=== PATIENT | female | born 1960 | race Caucasian/White ===

== ENCOUNTER 2017-11-19 19:24 | Emergency (ER) | payer MEDICAID ==
[~2017-11-19] VITALS: Ht 167.6 cm; Wt 85.0 kg
[2017-11-19] MEDS ORDERED: IOHEXOL 350 MG/ML 10 ML VIAL (for RAD DIAG) IVCONTRAST ONE (19:25)
[2017-11-19 19:38] VITALS: BP 133/71; PULSE 85; RESP 18; TEMP 98.4; O2SAT 99
[2017-11-19] MEDS ORDERED: ONDANSETRON HCL 4 MG/2 ML VIAL IVP ONE (19:45)
[2017-11-19] MEDS ORDERED: SODIUM CHLORIDE 0.9% FLUSH 10 ML FLUSH IV FLUSH PRN (19:45)
--- NOTE | 2017-11-19 19:53 | PD ---
HPI Chief Complaint: Abdominal Pain Time Seen by Provider: 19:35 Travel History International Travel<30 days: No Contact w/Intl Traveler<30days: No Traveled to known affect area: No History of Present Illness HPI 57-year-old female presents with diffuse abdominal pain that has been going on for the past couple of months. She states it has gotten worse and she has not had any urinary output out of her catheter since yesterday. She states she is on IV minocycline for a bad urinary tract infection as well as an oral antibiotic Macrobid that she got it [place]. She states she followed with Dr. Gardiner in the office and he scheduled her for surgery on Wednesday to replace her catheter in the OR. She states last time she had it changed in [facility]. She states she had to have it last changed in the OR a couple months ago and that she has had it for years. She states that she is nauseous and having urine leak from her urethra. She took oral Zofran prior to arrival. She arrives by ambulance. She denies any other specific complaints. [facility] Past Medical History Narrative Medical Hypertension, asthma, MS, fibromyalgia Past Surgical History Narrative Surgical Tonsillectomy, hysterectomy, cyst removal from ovary, vascular surgery to leg in 1983, prior knee surgery Social History Tobacco Use: Yes (E-cigarette use) Allergies-Medications (Allergen,Severity, Reaction): Coded Allergies: acetaminophen (Verified Allergy, Unknown, RASH, ITCHING, 11/19/17) cortisone (Verified Allergy, Unknown, RASH,ITCHING, VOMITING, 11/19/17) gabapentin (Verified Allergy, Unknown, MUSCLE SPASMS, 11/19/17) interferon beta-1a (Verified Allergy, Unknown, 11/19/17) latex (Verified Allergy, Unknown, RASH, ITCHING, 11/19/17) levofloxacin (Verified Allergy, Unknown, ITCHING, RASH, 11/19/17) metronidazole (Verified Allergy, Unknown, RASH, ITCHING, 11/19/17) morphine (Verified Allergy, Unknown, RASH, ITCHING, 11/19/17) Uncoded Allergies: SULFA MEDS (Allergy, Severe, FACE SWELLING, HIVES, 11/19/17) SPIRIVA (Allergy, Unknown, BLURRED VISION WITH EYE PAIN, 11/19/17) Reported Meds & Prescriptions Reported Meds & Active Scripts Active Keflex (Cephalexin) 500 Mg Cap 500 Mg PO Q12H 7 Days Reported Minocycline (Minocycline HCl) 100 Mg Cap 100 Mg IV BID Flovent Hfa 12 GM Inh (Fluticasone Propionate) 220 Mcg/Act Inh 1 Puff INH BID Use daily at the same time. Phenazopyridine (Phenazopyridine HCl) 200 Mg Tab 200 Mg PO TID PRN Fluconazole 100 Mg Tab 100 Mg PO DAILY Ditropan (Oxybutynin Chloride) 5 Mg Tab 5 Mg PO TID Diazepam 5 Mg Tab 5 Mg PO HS PRN Albuterol Neb (Albuterol Sulfate) 0.63 Mg/3 Ml Neb Unknown Dose NEB BID PRN Proair Hfa 8.5 GM Inh (Albuterol Sulfate) 90 Mcg/Act Aer 2 Puff INH Q4-6H PRN 108 mcg/actuation Zofran (Ondansetron HCl) 4 Mg Tab 4 Mg PO Q6HR PRN Polyethylene Glycol 3350 Powder (Polyethylene Glycol) 17 Gram Pow 17 Gm PO DAILY Protonix (Pantoprazole Sodium) 40 Mg Tab 40 Mg PO DAILY Aspirin Low Dose (Aspirin) 81 Mg Chew 81 Mg CHEW DAILY Once Daily (Multivitamin) 1 Each Tablet 1 Tab PO DAILY Probiotic (Lactobacillus Acidophilus) 10 Billion Cell Cap 1 Cap PO DAILY Topamax (Topiramate) 100 Mg Tab 100 Mg PO BID Oxycodone (Oxycodone HCl) 30 Mg Tab 30 Mg PO Q6HR Tizanidine (Tizanidine HCl) 4 Mg Cap 4 Mg PO TID Lyrica (Pregabalin) 150 Mg Cap 150 Mg PO TID Macrobid (Nitrofurantoin Monoh/Nitrofur Macro) 100 Mg Cap 100 Mg PO BID Review of Systems Except as stated in HPI: all other systems reviewed are Neg Physical Exam Narrative GENERAL: 57-year-old female in no apparent distress SKIN: Focused skin assessment warm/dry. HEAD: Atraumatic. Normocephalic. EYES: Pupils equal and round. No scleral icterus. No injection or drainage. ENT: No nasal bleeding or discharge. Mucous membranes pink and moist. NECK: Trachea midline. No JVD. CARDIOVASCULAR: Regular rate and rhythm. RESPIRATORY: No accessory muscle use. No increased effort GASTROINTESTINAL: Abdomen diffusely tender no rebound. [place] catheter bag noted with urine and feces NEUROLOGICAL: Awake and alert. Moves extremities. Normal speech. PSYCHIATRIC: Appropriate mood and affect; insight and judgment normal. Data Data Last Documented VS Vital Signs Date Time Temp Pulse Resp B/P (MAP) Pulse Ox O2 Delivery O2 Flow Rate FiO2 11/19/17 22:40 82 16 119/66 (83) 98 Room Air 11/19/17 19:38 98.4 Orders Orders Complete Blood Count With Diff (11/19/17 19:42) Comprehensive Metabolic Panel (11/19/17 19:42) Lipase (11/19/17 19:42) Prothrombin Time / Inr (Pt) (11/19/17 19:42) Act Partial Throm Time (Ptt) (11/19/17 19:42) Urinalysis - C+S If Indicated (11/19/17 19:42) Ct Abd/Pel W Iv Contrast(Rout) (11/19/17 19:42) Iv Access Insert/Monitor (11/19/17 19:42) Ecg Monitoring (11/19/17 19:42) Oximetry (11/19/17 19:42) Ondansetron Inj (Zofran Inj) (11/19/17 19:45) Sodium Chloride 0.9% Flush (Ns Flush) (11/19/17 19:45) Urine Culture (11/19/17 20:05) Ketorolac Inj (Toradol Inj) (11/19/17 21:30) Ceftriaxone Inj (Rocephin Inj) (11/19/17 21:45) Iohexol 350 Inj (Omnipaque 350 Inj) (11/19/17 19:25) Ed Discharge Order (11/19/17 22:31) Labs Laboratory Tests Test 11/19/17 20:00 11/19/17 20:05 White Blood Count 7.8 TH/MM3 Red Blood Count 4.07 MIL/MM3 Hemoglobin 13.1 GM/DL Hematocrit 38.6 % Mean Corpuscular Volume 94.8 FL Mean Corpuscular Hemoglobin 32.2 PG Mean Corpuscular Hemoglobin Concent 34.0 % Red Cell Distribution Width 14.7 % Platelet Count 268 TH/MM3 Mean Platelet Volume 8.6 FL Neutrophils (%) (Auto) 48.6 % Lymphocytes (%) (Auto) 35.1 % Monocytes (%) (Auto) 7.9 % Eosinophils (%) (Auto) 7.8 % Basophils (%) (Auto) 0.6 % Neutrophils # (Auto) 3.8 TH/MM3 Lymphocytes # (Auto) 2.7 TH/MM3 Monocytes # (Auto) 0.6 TH/MM3 Eosinophils # (Auto) 0.6 TH/MM3 Basophils # (Auto) 0.0 TH/MM3 CBC Comment DIFF FINAL Differential Comment Prothrombin Time 10.5 SEC Prothromb Time International Ratio 1.0 RATIO Activated Partial Thromboplast Time 27.2 SEC Blood Urea Nitrogen 21 MG/DL Creatinine 0.98 MG/DL Random Glucose 82 MG/DL Total Protein 6.6 GM/DL Albumin 3.1 GM/DL Calcium Level 9.0 MG/DL Alkaline Phosphatase 99 U/L Aspartate Amino Transf (AST/SGOT) 10 U/L Alanine Aminotransferase (ALT/SGPT) 8 U/L Total Bilirubin 0.4 MG/DL Sodium Level 143 MEQ/L Potassium Level 3.2 MEQ/L Chloride Level 112 MEQ/L Carbon Dioxide Level 22.9 MEQ/L Anion Gap 8 MEQ/L Estimat Glomerular Filtration Rate 58 ML/MIN Lipase 140 U/L Urine Color DARK-YELLOW Urine Turbidity CLOUDY Urine pH 8.0 Urine Specific [place] 1.014 Urine Protein 300 mg/dL Urine Glucose (UA) NEG mg/dL Urine Ketones NEG mg/dL Urine Occult Blood SMALL Urine Nitrite NEG Urine Bilirubin NEG Urine Urobilinogen LESS THAN 2.0 MG/DL Urine Leukocyte Esterase LARGE Urine RBC 4 /hpf Urine Squamous Epithelial Cells 1 /hpf Urine Triple Phosphate Crystals MOD /hpf Urine Amorphous Sediment FEW Urine Bacteria MANY /hpf Urine Mucus FEW /lpf Microscopic Urinalysis Comment CULTURE INDICATED MDM Medical Decision Making Medical Screen Exam Complete: Yes Emergency Medical Condition: Yes Medical Record Reviewed: Yes (Past history confirmed) Interpretation(s) CBC & BMP Diagram 11/19/17 20:00 Total Protein 6.6, Albumin 3.1 L, Calcium Level 9.0, Alkaline Phosphatase 99, Aspartate Amino Transf (AST/SGOT) 10 L, Alanine Aminotransferase (ALT/SGPT) 8 L , Total Bilirubin 0.4 ua with infection Last 24 hours Impressions Abdomen/Pelvis CT 11/19/171941 Signed Impressions: Service Date/Time: Sunday, November 19, 2017 21:57 - CONCLUSION: 1. No acute findings. Suprapubic catheter present. Nonobstructing renal calcifications. No obstruction, free fluid or free air. Ken Miranda MD Differential Diagnosis UTI, fistula, acute renal failure, obstruction Narrative Course We will check blood work, urinalysis, CT scan abdominal pelvis and reevaluate On CT patient has no distention of bladder, blood work shows no signs of renal failure. Patient still has infection in urine. Will give Rocephin and discuss with her urologist Patient updated and will be given Keflex to add to her antibiotics. Advised to follow for surgery on Wednesday. Patient denies any new complaints, all questions answered. Patient knows that follow up is incumbent on them and to return to the emergency room immediately if new or worsening symptoms develop. Patient given strict return precautions, vitals reviewed and are normal, agrees to further workup as an outpatient. staff helping arrange medical transport Physician Communication Physician Communication dr gardiner states to send home and can add keflex Diagnosis Primary Impression: Abdominal pain Qualified Codes: R10.9 - Unspecified abdominal pain Additional Impression: UTI (urinary tract infection) Qualified Codes: T83.511A - Infection and inflammatory reaction due to indwelling urethral catheter, initial encounter; N39.0 - Urinary tract infection , site not specified Patient Instructions: General Instructions Additional Instructions: come for your surgery Wednesday as scheduled, tylenol as needed Med/Other Pt SpecificInfo: Prescription(s) given Scripts Cephalexin (Keflex) 500 Mg Cap 500 MG PO Q12H for Infection for 7 Days, #14 CAP 0 Refills Prov: Sowmya Rousseau MD 11/19/17 Disposition: 01 DISCHARGE HOME Condition: Stable Sowmya Rousseau MD Nov 19, 2017 19:53
[2017-11-19 19:59] VITALS: O2SAT 100
[2017-11-19 20:16] LABS: AUTOMATED NEUTROPHIL # 3.8 TH/MM3 (1.8-7.7); BASOPHIL % 0.6 % (0.0-2.0); EOSINOPHIL # 0.6 TH/MM3 (0-0.4); EOSINOPHIL % 7.8 % (0.0-4.0); HEMATOCRIT 38.6 % (35.0-46.0); HEMOGLOBIN 13.1 GM/DL (11.6-15.3); LYMPH % 35.1 % (9.0-44.0); LYMPHOCYTE # 2.7 TH/MM3 (1.0-4.8); MEAN CELL VOLUME 94.8 FL (80.0-100.0); MEAN CORPUSCULAR HEMOGLOBIN 32.2 PG (27.0-34.0); MEAN PLATELET VOLUME 8.6 FL (7.0-11.0); MONO % 7.9 % (0.0-8.0); MONOCYTE # 0.6 TH/MM3 (0-0.9); NEUT % 48.6 % (16.0-70.0); PLATELET COUNT 268 TH/MM3 (150-450); RED BLOOD COUNT 4.07 MIL/MM3 (4.00-5.30); RED CELL DISTRIBUTION WIDTH 14.7 % (11.6-17.2); WHITE BLOOD COUNT 7.8 TH/MM3 (4.0-11.0)
[2017-11-19] MEDS ORDERED: LACTCAP8 PO (20:23)
[2017-11-19] MEDS ORDERED: TIZA4CAP3 PO (20:23)
[2017-11-19] MEDS ORDERED: POLY17S PO (20:23)
[2017-11-19] MEDS ORDERED: MACR100C2 PO (20:23)
[2017-11-19] MEDS ORDERED: TOPI100 PO (20:23)
[2017-11-19] MEDS ORDERED: DIAZ5TAB PO (20:23)
[2017-11-19] MEDS ORDERED: ZOFR4TAB PO (20:23)
[2017-11-19] MEDS ORDERED: FLUC100T2 PO (20:23)
[2017-11-19] MEDS ORDERED: OXYB5TAB8 PO (20:23)
[2017-11-19] MEDS ORDERED: FLUTI220I INH (20:23)
[2017-11-19] MEDS ORDERED: PROT40TA PO (20:23)
[2017-11-19] MEDS ORDERED: MINO100 IV (20:23)
[2017-11-19] MEDS ORDERED: OXYC30TA PO (20:23)
[2017-11-19] MEDS ORDERED: ONCETAB7 PO (20:23)
[2017-11-19] MEDS ORDERED: PHEN-537 PO (20:23)
[2017-11-19] MEDS ORDERED: ALBUAER3 INH (20:23)
[2017-11-19] MEDS ORDERED: LYRI150C PO (20:23)
[2017-11-19] MEDS ORDERED: ALBU0.63 NEB (20:23)
[2017-11-19] MEDS ORDERED: ASPI81CH6 CHEW (20:23)
[2017-11-19 20:25] LABS: PROTHROMBIN TIME - PATIENT 10.5 SEC (9.8-11.6)
[2017-11-19 20:30] LABS: AMORPHOUS SEDIMENT, URINE FEW; BACTERIA, URINE MANY /hpf; BILIRUBIN, URINE NEG (NEG); BLOOD, URINE SMALL (NEG); GLUCOSE,URINE NEG (NEG); KETONE, URINE NEG (NEG); MUCUS URINE FEW /lpf (OCC); NITRITE,URINE NEG (NEG); SQUAMOUS EPITHELIAL CELL URINE 1 /hpf (0-5); TRIPLE PHOSPHATE CRYSTAL,URINE MOD /hpf; URINE LEUKOCYTE ESTERASE LARGE (NEG)
[2017-11-19 20:31] LABS: URINE COLOR DARK-YELLOW (YELLW/STRAW)
[2017-11-19 20:33] LABS: ALBUMIN 3.1 GM/DL (3.4-5.0); AST (GOT) 10 U/L (15-37); BICARBONATE 22.9 MEQ/L (21.0-32.0); BLOOD UREA NITROGEN 21 MG/DL (7-18); CHLORIDE 112 MEQ/L (98-107); CREATININE 0.98 MG/DL (0.50-1.00); GLOMERULAR FILTRATION RATE 58 ML/MIN (>89); GLUCOSE,RANDOM 82 MG/DL (74-106); SODIUM (NA) 143 MEQ/L (136-145)
[2017-11-19 20:35] LABS: ALKALINE PHOSPHATASE 99 U/L (45-117); ALT (GPT) 8 U/L (10-53); TOTAL BILIRUBIN ADULT 0.4 MG/DL (0.2-1.0); TOTAL PROTEIN 6.6 GM/DL (6.4-8.2)
[2017-11-19] MEDS ORDERED: KETOROLAC TROMETHAMINE 30 MG/ML (IVP) VIAL IV PUSH ONE (21:30)
[2017-11-19] MEDS ORDERED: cefTRIAXone INJ 1,000 MG in SODIUM CHLORIDE 0.9% INJ 100 ML IV ONE (21:45)
--- NOTE | 2017-11-19 22:19 | RADRPT ---
EXAM DATE/TIME: 11/19/2017 21:57 [place] COMPARISON: No previous studies available for comparison. INDICATIONS : Abdominal pain with nausea and vomiting. IV CONTRAST: 97 cc Omnipaque 350 (iohexol) IV ORAL CONTRAST: No oral contrast ingested. RADIATION DOSE: 13.28 CTDIvol (mGy) MEDICAL HISTORY : Hypertension. Renal calculi. reflux SURGICAL HISTORY : Hysterectomy. suprapubis catheter ENCOUNTER: Initial ACUITY: 1 day PAIN SCALE: 5/10 LOCATION: lower quadrant abdomen TECHNIQUE: Volumetric scanning of the abdomen and pelvis was performed. Using automated exposure control and ad justment of the mA and/or kV according to patient size, radiation dose was kept as low as reasonably achievable to obtain optimal diagnostic quality images. DICOM format image data is available electro nically for review and comparison. FINDINGS: Lung bases are clear. No acute findings in the liver, spleen, pancreas. Mild bilateral adrenal hyperp lasia. Small bilateral renal cysts. Nonobstructing 3 mm calcification in the lower pole of both kidne ys. 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 No free air or free fluid. No bowel obstruction. Suprapubic catheter present. Moderate severe osteoar thritis of the hips. CONCLUSION: 1. No acute findings. Suprapubic catheter present. Nonobstructing renal calcifications. No obstructio n, free fluid or free air. Ken Miranda MD on November 19, 2017 at 22:14 Board Certified Radiologist. This report was verified electronically.
[2017-11-19] MEDS ORDERED: CEPH-460 PO (22:32)
[2017-11-19 22:40] VITALS: BP 119/66; PULSE 82; RESP 16; O2SAT 98
[2017-11-23] MEDS ORDERED: TRAM50 PO (15:11)
== END 2017-11-20 00:31 | disposition home or self-care (01) ==
LOC: NEPC 19:24
DX: R10.9 Unspecified abdominal pain (principal); T83.511A Infection and inflammatory reaction due to indwelling urethral catheter, initial encounter; N39.0 Urinary tract infection, site not specified; R11.0 Nausea; B96.5 Pseudomonas (aeruginosa) (mallei) (pseudomallei) as the cause of diseases classified elsewhere; B96.89 Other specified bacterial agents as the cause of diseases classified elsewhere; I10 Essential (primary) hypertension; J45.909 Unspecified asthma, uncomplicated; G35 Multiple sclerosis; M79.7 Fibromyalgia; Z72.0 Tobacco use
CPT/HCPCS: 74177; 80053; 81001; 83690; 85025; 85610; 85730; 87077; 87086; 87186; 96374; 96375; 99284; J0696; J1885; J2405; Q9967

== ENCOUNTER → 2017-11-23 | Day surgery (SDC) | payer MEDICAID ==
[~2017-11-23] VITALS: Ht 167.6 cm; Wt 86.0 kg
[~2017-11-23] MED LIST: *ONDANSETRON 4 MG VIAL PERIprocedural Use ONLY ONE; *RESP: ALBUTEROL 2.5 MG/3 ML NEB (PRN) PERIprocedural Use ONLY NEB ONE; ALBU0.63 NEB; ALBUAER3 INH; ASPI81CH6 CHEW; CEPH-460 PO; CHLORHEXIDINE GLUCONATE 2 % 1 PACK (2 CLOTHS) TOPICAL PRN; DIAZ5TAB PO; DO NOT ADM ANY ANTICOAGULANT DRUGS PRN; FLUC100T2 PO; FLUTI220I INH; HYDROmorphone HCL PF 2 MG/ML VIAL IV PUSH PRN; HYDROmorphone HCL PF 2 MG/ML VIAL ONE; LACTATED RINGER'S 1000 ML INJ 1,000 ML IV ONE; LACTATED RINGER'S 1000 ML IV PRN; LACTCAP8 PO; LIDOCAINE HCL 1% PF 5 ML SYRINGE OTHER ONE; LYRI150C PO; MACR100C2 PO; METOPROLOL TARTRATE 25 MG TAB PO PRN; MIDAZOLAM HCL 2 MG/2 ML VIAL ONE; MINO100 IV; ONCETAB7 PO; ONDANSETRON HCL 4 MG/2 ML VIAL IV ONE; ONDANSETRON HCL 4 MG/2 ML VIAL IV PUSH PRN; OXYB5TAB8 PO; OXYC30TA PO; PHEN-537 PO; PHENYLEPH/NS 1000 MCG/10 ML SYR IV ONE; PICC Daily Heparin 100 unit/mL Lock Flush IV FLUSH SCH; PICC PRN Heparin 100 units/ml Lock Flush IV FLUSH; POLY17S PO; POVIDONE IODINE 5% (ANTISEPSIS KIT) 4 APPLICATIONS EACH NARE PRN; PROPOFOL 200 MG/20 ML AMP IV ONE; PROT40TA PO; SODIUM CHLORID 0.9% 500 ML IV PRN; SODIUM CHLORIDE 0.9% FLUSH 10 ML FLUSH IV FLUSH PRN; SODIUM CHLORIDE 0.9% FLUSH 10 ML FLUSH IV FLUSH SCH; TIZA4CAP3 PO; TOPI100 PO; TRAM50 PO; ZOFR4TAB PO; ePHEDrine/NS 25 MG/5 ML SYRINGE IV ONE; traMADol HCL 50 MG TAB PO PRN
[2017-11-23 12:36] LABS: BASOPHIL # 0.1 TH/MM3 (0-0.2); BASOPHIL % 0.7 % (0.0-2.0); EOSINOPHIL # 0.4 TH/MM3 (0-0.4); EOSINOPHIL % 5.4 % (0.0-4.0); HEMOGLOBIN 14.2 GM/DL (11.6-15.3); LYMPH % 37.1 % (9.0-44.0); LYMPHOCYTE # 2.9 TH/MM3 (1.0-4.8); MEAN CELL VOLUME 94.7 FL (80.0-100.0); MEAN CORPUSCULAR HGB CONC 33.8 % (32.0-36.0); MEAN PLATELET VOLUME 9.6 FL (7.0-11.0); MONO % 6.1 % (0.0-8.0); MONOCYTE # 0.5 TH/MM3 (0-0.9); NEUT % 50.7 % (16.0-70.0); PLATELET COUNT 260 TH/MM3 (150-450); RED BLOOD COUNT 4.44 MIL/MM3 (4.00-5.30); RED CELL DISTRIBUTION WIDTH 15.1 % (11.6-17.2); WHITE BLOOD COUNT 7.9 TH/MM3 (4.0-11.0)
--- NOTE | 2017-11-23 15:05 | PD.OP ---
Operative Report Date of Surgery: Nov 23, 2017 Preoperative Diagnosis: (1) Neurogenic bladder Postoperative Diagnosis: (1) Neurogenic bladder Procedure: Cystoscopy and exchange of suprapubic catheter Anesthesia: General Surgeon: Dalton Gambino Cooker Soda(s): None Operation and Findings: Indication for procedures: Case of a pleasant 57-year-old female with neurogenic bladder dysfunction related to multiple sclerosis who presents now for cystoscopy and exchange of suprapubic catheter. Operative procedure in detail: Patient was brought to the operating room suite and placed supine on the OR table. She was then placed under general anesthesia. She was then repositioned in the dorsal lithotomy position and prepped and draped in normal sterile fashion. After an appropriate timeout was undertaken I proceeded with cystoscopic evaluation utilizing the rigid cystoscope with the 20 [place] sheath and 30 lens. Both right and left ureteral orifice equal to correct anatomic position draining clear yellow urine. There was some sediment floating around within the urinary bladder that appeared to be related to crustations on the balloon of the suprapubic catheter. There was no evidence of bladder stones or fistula formation. The bladder was then irrigated via the cystoscope and subsequent to this the suprapubic catheter was easily changed with a 16 [place] silicone [place] with 10 cc in the balloon. Position was verified with cystoscopic evaluation. The suprapubic catheter was then connected to gravity drainage and the cystoscope withdrawn. The patient tolerated the procedures without complications. She was transferred to the PACU in satisfactory condition. Dalton Gambino MD Nov 23, 2017 15:05
[2017-11-23 17:00] VITALS: BP 113/58; PULSE 97; RESP 18; TEMP 97.7; O2SAT 99
--- NOTE | 2017-11-24 15:54 | EKG ---
Date Performed: 11/23/2017 Time Performed: 13:27:29 PTAGE: 57 years EKG: Sinus rhythm NORMAL ECG NO PREVIOUS TRACING DOCTOR: Jerome Barrett Interpretating Date/Time 11/24/2017 15:52:57
== END | disposition home or self-care (01) ==
LOC: HSDC 10:39
PROVIDERS: ATTEND Urology
DX: N31.9 Neuromuscular dysfunction of bladder, unspecified (principal); G35 Multiple sclerosis; I10 Essential (primary) hypertension; J45.909 Unspecified asthma, uncomplicated; I73.9 Peripheral vascular disease, unspecified; K21.9 Gastro-esophageal reflux disease without esophagitis; I83.90 Asymptomatic varicose veins of unspecified lower extremity; H93.19 Tinnitus, unspecified ear; M85.80 Other specified disorders of bone density and structure, unspecified site; Z87.440 Personal history of urinary (tract) infections; Z01.818 Encounter for other preprocedural examination
CPT/HCPCS: 00800; 51705; 85025; 93005; 94664; J1170; J1642; J2250; J2370; J2405; J3010; J7120; J7613

== ENCOUNTER → 2017-12-20 | Day surgery (SDC) | payer MEDICAID ==
[~2017-12-20] VITALS: Ht 167.6 cm; Wt 82.0 kg
[~2017-12-20] MED LIST changes: +*MEPERIDINE 25 MG INJ VIAL PERIprocedural Use ONLY ONE; +*PROMETHAZINE 25 MG/ML VIAL PERIprocedural use ONLY ONE; -*RESP: ALBUTEROL 2.5 MG/3 ML NEB (PRN) PERIprocedural Use ONLY NEB ONE; +APREPITANT 40 MG CAP ONE; +APREPITANT 40 MG CAP PO ONE; -CEPH-460 PO; +CITR1SOL IRRIGATION; +CYAN100025 IM; +FAMOTIDINE 20 MG/2 ML VIAL IV ONE; +FAMOTIDINE 20 MG/2 ML VIAL ONE; -HYDROmorphone HCL PF 2 MG/ML VIAL IV PUSH PRN; -LACTATED RINGER'S 1000 ML INJ 1,000 ML IV ONE; -ONDANSETRON HCL 4 MG/2 ML VIAL IV ONE; +ONDANSETRON HCL 4 MG/2 ML VIAL IV PUSH ONE; -SODIUM CHLORIDE 0.9% FLUSH 10 ML FLUSH IV FLUSH SCH; -traMADol HCL 50 MG TAB PO PRN
--- NOTE | 2017-12-20 11:28 | PD.OP ---
Operative Report Date of Surgery: Dec 20, 2017 Preoperative Diagnosis: (1) Neurogenic bladder Postoperative Diagnosis: (1) Neurogenic bladder Procedure: Cystoscopy and replacement of suprapubic tube Anesthesia: General Surgeon: Dalton Gambino Cake Press Operator Helper(s): None Operation and Findings: Indication for procedures: Case of a pleasant 57-year-old female with neurogenic bladder dysfunction related to multiple sclerosis who is being managed with an indwelling suprapubic catheter. Patient recently presented to my office for exchange of suprapubic catheter and the catheter could not be successfully removed. Patient presents today for cystoscopy and replacement of suprapubic catheter. Operative procedure in detail: Patient was brought to the operating room suite and placed supine on the cystoscopy table. She was then placed under general anesthesia. She was then repositioned in the dorsolithotomy position and prepped and draped in normal sterile fashion. After appropriate timeout was undertaken I proceeded with cystoscopic evaluation utilizing the rigid cystoscope with the 20 [place] sheath and the 30 lens. The tip of the suprapubic catheter could be easily seen and had multiple calcifications adherent to it. Under direct vision I deflated the catheter balloon and attempted to remove the catheter however the calcifications at the tip of the catheter precluded retrieval. I then cut the catheter near the hub and grasped the end of the catheter with flexible forceps and brought it out through the urethra. A 16 [place] 10 cc catheter was then easily replaced and connected to gravity drainage. The patient tolerated the procedures without complications and was transferred to the PACU in satisfactory condition. Dalton Gambino MD Dec 20, 2017 11:28
[2017-12-20 13:34] VITALS: BP 105/79; PULSE 83; RESP 18; TEMP 97.5; O2SAT 100
== END | disposition home or self-care (01) ==
LOC: HSDC 06:11
PROVIDERS: ATTEND Urology
DX: N31.9 Neuromuscular dysfunction of bladder, unspecified (principal); G35 Multiple sclerosis
CPT/HCPCS: 00800; 51710; J1170; J2175; J2250; J2370; J2405; J2550; J3010; J7120; J8501

== ENCOUNTER → 2018-01-31 | Day surgery (SDC) | payer MEDICAID ==
[~2018-01-31] VITALS: Ht 167.6 cm; Wt 82.0 kg
[~2018-01-31] MED LIST changes: +*HYDROmorphone PF 0.5 MG/0.5 ML PERIprocedure ONLY ONE; -*PROMETHAZINE 25 MG/ML VIAL PERIprocedural use ONLY ONE; +*RESP: ALBUTEROL 2.5 MG/3 ML NEB (PRN) PERIprocedural Use ONLY NEB ONE; -APREPITANT 40 MG CAP ONE; -APREPITANT 40 MG CAP PO ONE; +CEPH500C PO; -DO NOT ADM ANY ANTICOAGULANT DRUGS PRN; -FAMOTIDINE 20 MG/2 ML VIAL IV ONE; -FAMOTIDINE 20 MG/2 ML VIAL ONE; -FLUC100T2 PO; -HYDROmorphone HCL PF 2 MG/ML VIAL ONE; -MACR100C2 PO; -MIDAZOLAM HCL 2 MG/2 ML VIAL ONE; -MINO100 IV; +NITR1CAP36 PO; -ONDANSETRON HCL 4 MG/2 ML VIAL IV PUSH ONE; +PICC PRN After Blood Draw NS Lock Flush IV FLUSH; +PROMETHAZINE INJ 25 MG/ML VIAL ONE; +SODIUM CHLORIDE 0.9% FLUSH 10 ML FLUSH IV FLUSH SCH; -TRAM50 PO; +[UNRECOGNIZED DRUG - CODE] IV; +oxyCODONE/ACETAMINOPHEN 7.5 MG/325 MG TAB PO PRN
[2018-01-31 12:30] LABS: AUTOMATED NEUTROPHIL # 4.6 TH/MM3 (1.8-7.7); BASOPHIL # 0.1 TH/MM3 (0-0.2); BASOPHIL % 0.8 % (0.0-2.0); EOSINOPHIL # 0.5 TH/MM3 (0-0.4); EOSINOPHIL % 5.2 % (0.0-4.0); HEMATOCRIT 43.5 % (35.0-46.0); HEMOGLOBIN 14.8 GM/DL (11.6-15.3); LYMPH % 38.4 % (9.0-44.0); LYMPHOCYTE # 3.6 TH/MM3 (1.0-4.8); MEAN CELL VOLUME 93.9 FL (80.0-100.0); MEAN CORPUSCULAR HEMOGLOBIN 31.9 PG (27.0-34.0); MEAN CORPUSCULAR HGB CONC 33.9 % (32.0-36.0); MEAN PLATELET VOLUME 9.6 FL (7.0-11.0); MONO % 6.8 % (0.0-8.0); MONOCYTE # 0.6 TH/MM3 (0-0.9); NEUT % 48.8 % (16.0-70.0); PLATELET COUNT 239 TH/MM3 (150-450); RED BLOOD COUNT 4.63 MIL/MM3 (4.00-5.30); RED CELL DISTRIBUTION WIDTH 14.2 % (11.6-17.2); WHITE BLOOD COUNT 9.4 TH/MM3 (4.0-11.0)
--- NOTE | 2018-01-31 15:20 | PD.OP ---
Operative Report Date of Surgery: Jan 31, 2018 Preoperative Diagnosis: (1) Neurogenic bladder Postoperative Diagnosis: (1) Neurogenic bladder Procedure: Cystoscopy and exchange of retained suprapubic tube Surgeon: Dalton Gambino Director Corporate Sales(s): None Operation and Findings: Indication for procedures: Case of a pleasant 57-year-old female with history neurogenic bladder dysfunction who presents today for cystoscopy and exchange of a retained suprapubic catheter. Operative procedure in detail: Patient was brought to the operating room suite and placed supine on the OR table. She was then placed under general anesthesia. She was then repositioned in the dorsolithotomy position and prepped and draped in normal sterile fashion. After appropriate timeout was undertaken I proceeded with cystoscopic evaluation utilizing the rigid cystoscope with the 30 lens and 20 [place] sheath. The previously inserted suprapubic catheter could be seen protruding from the anterior bladder wall. The exposed portion of the catheter including the balloon was markedly encrusted. I then deflated the balloon with a 10 cc syringe and attempted to withdraw it without success. I utilized the grasping forceps to break up some of the encrustations on the exposed portion of the tube. The tube was then cut from above and removed from below utilizing grasping forceps. I then proceeded with placing a new 18 [place] silicone suprapubic catheter from above without difficulty. The previous suprapubic tube was 16 [place] in caliber. The cystoscope was then withdrawn. The suprapubic catheter was then connected to gravity drainage and a sterile dressing applied at the site. The patient tolerated the procedures without complications and was transferred to the PACU in satisfactory condition. Dalton Gambino MD Jan 31, 2018 15:20
[2018-01-31 18:30] VITALS: BP 110/68; PULSE 88; RESP 16; O2SAT 98
== END | disposition home or self-care (01) ==
LOC: HSDC 09:38
PROVIDERS: ATTEND Urology
DX: N31.9 Neuromuscular dysfunction of bladder, unspecified (principal); R33.8 Other retention of urine; T83.19 Other mechanical complication of other urinary devices and implants; I10 Essential (primary) hypertension
CPT/HCPCS: 00800; 51102; 85025; 94664; J1170; J1642; J2175; J2370; J2405; J2550; J3010; J7120; J7613